=== PATIENT | female | born 1975 | race Caucasian/White ===

== ENCOUNTER 2019-07-18 17:57 | Inpatient (IN) | payer SELFPAY ==
[2019-07-18 18:14] VITALS: BMI 21.9
--- NOTE | 2019-07-18 18:14 | PDOC ---
Rapid Medical Evaluation Chief Complaint: RX Refill Time Seen by Provider: 07/18/19 18:10 Medical Evaluation: Allergies Allergy/AdvReac Type Severity Reaction Status Date / Time No Known Allergies Allergy Verified 07/18/19 18:09 07/18/19 18:11 I performed a brief in-person evaluation of this patient. 44-year-old female with history of epilepsy, recently moved from [place] and unable to get AEDs. Had seizure last night. Normally has 1 seizure per week. Seeking refill for Dilantin ER 200mg bid and Vimpat 200mg bid. Pertinent physical exam findings: Alert, no distress. No focal deficits. I have ordered the following: Dilantin Er 200mg Vimpat 200mg Labs including levels Patient to proceed to ED for further evaluation. Discharge Disposition - Diagnosis Seizure - Referrals - Patient Instructions - Post Discharge Activity
[2019-07-18] MEDS ORDERED: PHENYTOIN NA EXTENDED 100 MG CAPSULE (FP) PO ONE (18:15)
[2019-07-18] MEDS ORDERED: LACOSAMIDE 50 MG TABLET PO ONE ×2 (18:16→19:59)
[2019-07-18 19:15] LABS: EPI CELLS 3.9 /HPF (0-5/HPF); HYALINE CASTS 3 /lpf (0-8); PH,URINE 5.5 (5.0-8.0); URINE APPEARANCE CLOUDY; URINE BACTERIA 131.1 /hpf (NEGATIVE); URINE BILIRUBIN NEGATIVE (NEGATIVE); URINE COLOR DK YELLOW; URINE GLUCOSE (UA) NEGATIVE (NEGATIVE); URINE KETONE TRACE (NEGATIVE); URINE LEUK ESTERASE 2+ (NEGATIVE); URINE NITRITE NEGATIVE (NEGATIVE); URINE PROTEIN 1+ (NEGATIVE); URINE RBC 7 /hpf (0-4); URINE WBC 314 /hpf (0-5)
[2019-07-18 19:45] LABS: ALBUMIN 3.9 g/dl (3.4-5.0); BILIRUBIN,TOTAL 0.2 mg/dL (0.2-1); BLOOD UREA NITROGEN 14.1 mg/dL (7-18); CALCIUM 8.9 mg/dL (8.5-10.1); CREATININE 0.7 mg/dL (0.55-1.3); POTASSIUM 3.4 mmol/L (3.5-5.1); TOT PROT 7.5 g/dl (6.4-8.2)
--- NOTE | 2019-07-18 19:46 | PDOC ---
Attending Attestation - Resident Resident Name: Ken Tucker - ED Attending Attestation I have performed the following: I have examined & evaluated the patient, The case was reviewed & discussed with the resident, I agree w/resident's findings & plan - HPI HPI: 07/18/19 21:51 see resident hpi - Physicial Exam PE: 07/18/19 21:52 see resident exam - Medical Decision Making 07/18/19 22:39 44-year-old female with history of seizures unable to obtain outpatient follow- up now with increasing frequency of seizures Labs suggest urinary tract infection Plan for CT scan of the brain, admission to medical service for further evaluation
[2019-07-18] MEDS ORDERED: PHENYTOIN NA EXTENDED 100 MG CAPSULE (FP) ONE (19:59)
[2019-07-18] MEDS ORDERED: CEPHALEXIN MONOHYDRATE 500 MG CAPSULE (UD) PO ONE (20:07)
--- NOTE | 2019-07-18 20:14 | PDOC ---
History of Present Illness - General Chief Complaint: Seizure Stated Complaint: SEIZURE Time Seen by Provider: 07/18/19 18:10 History Source: Patient - History of Present Illness Initial Comments: 44F PMH Epilepsy presenting requesting refill on her medications; moved from [place] yesterday and out of her sz meds. Had witnessed seizure in ED in [place] and was given her home meds and dc'd. Ran out of insurance; unable to fill meds. Denies f/c, headache, lightheadedness, vision changes, numbness, tingling, weakness. Denies cp/sob, n/v. Past History - Past Medical History Allergies/Adverse Reactions: Allergies Allergy/AdvReac Type Severity Reaction Status Date / Time No Known Allergies Allergy Verified 07/18/19 18:09 Home Medications: Ambulatory Orders Folic Acid - 1 mg PO DAILY #30 tablet 07/19/19 Thiamine HCl [Vitamin B1 -] 100 mg PO DAILY #30 tablet 07/19/19 Phenytoin Na Extended [Dilantin -] 200 mg PO BID #60 capsule 07/22/19 levETIRAcetam [Keppra -] 750 mg PO BID #60 tablet 07/22/19 - Psycho Social/Smoking Cessation Hx Smoking History: Current every day smoker Number of Cigarettes Smoked Daily: 10 Information on smoking cessation initiated: No Hx Alcohol Use: No Drug/Substance Use Hx: No Review of Systems - Review of Systems Able to Perform ROS?: Yes Comments:: CONSTITUTIONAL: Denies F / C HEENT: Denies headache, lightheadedness RESP: Denies SOB, cough CARD: Denies chest pain, palpitations GI: Denies N / V / D, abdominal pain : Denies dysuria SKIN: Denies rashes NEURO: Denies numbness, tingling, weakness MSK: Denies back pain *Physical Exam - Vital Signs Last Vital Signs Temp Pulse Resp BP Pulse Ox 98.2 F 90 16 120/90 99 07/18/19 18:10 07/18/19 18:10 07/18/19 18:10 07/18/19 18:10 07/18/19 18:10 - Physical Exam GEN: Well appearing, NAD, comfortable. AAOx3. HEENT: NC/AT, CN II-XII intact, EOMI, PERRL. No facial asymmetry. Normal voice. Supple neck w/ FROM. CV: S1/S2, RRR, no m/r/g LUNG: CTAB, no wheezes, crackles, rales, rhonchi. GI: Soft, ndnt, +BS, no guarding, no rebound. No masses. MSK: No obvious deformities of all extremities. SKIN: Warm, dry, no rashes appreciated. PSYCH: Normal mood and affect. NEURO: Moving all extremities well; 5/5 UE LE strength. Symmetric sensation. FTN no ataxia. ED Treatment Course - LABORATORY CBC & Chemistry Diagram: 07/19/19 06:57 07/19/19 06:57 - ADDITIONAL ORDERS Additional order review: Laboratory Results 07/18/19 07/18/19 18:38 18:30 Sodium 140 Potassium 3.4 L Chloride 103 Carbon Dioxide 28 Anion Gap 9 BUN 14.1 Creatinine 0.7 Est GFR (CKD-EPI)AfAm 121.27 Est GFR (CKD-EPI)NonAf 104.64 Random Glucose 102 Calcium 8.9 Total Bilirubin 0.2 AST 18 ALT 26 Alkaline Phosphatase 127 H Total Protein 7.5 Albumin 3.9 Urine Color Dk yellow Urine Appearance Cloudy Urine pH 5.5 Ur Specific [place] 1.028 Urine Protein 1+ H Urine Glucose (UA) Negative Urine Ketones Trace H Urine Blood Negative Urine Nitrite Negative Urine Bilirubin Negative Urine Urobilinogen 1.0 Ur Leukocyte Esterase 2+ H Urine WBC (Auto) 314 Urine RBC (Auto) 7 Urine Casts (Auto) 3 U Epithel Cells (Auto) 3.9 Urine Bacteria (Auto) 131.1 - Medications Given in the ED: ED Medications Discontinued Medications Generic Name Dose Route Start Last Admin Trade Name Freq PRN Reason Stop Dose Admin Lacosamide 200 mg 07/18/19 18:16 07/18/19 20:04 Vimpat - PO 07/18/19 18:17 200 mg ONCE ONE Administration Phenytoin Sodium 200 mg 07/18/19 18:15 07/18/19 20:04 Dilantin - PO 07/18/19 18:16 200 mg ONCE ONE Administration Medical Decision Making - Medical Decision Making 07/18/19 20:07 44F pmh epilepsy, out of meds, no insurance. neurologically intact. Pt has been moving around EDs for AEDs; will have seizure if w/o AEDs x24h. Concern for further seizures or deterioration of clinical condition if pt unable to obtain supply of AEDs. - cbc, cmp - ekg - CT head - neuro c/s - meds 07/18/19 22:[address] head report reviewed admitted Discharge - Discharge Information Problems reviewed: Yes Clinical Impression/Diagnosis: Seizure Condition: Good Disposition: HOME - Follow up/Referral - Patient Discharge Instructions - Post Discharge Activity
[2019-07-18] MEDS ORDERED: CEPHALEXIN MONOHYDRATE 500 MG CAPSULE (UD) ONE (20:15)
[2019-07-18 21:13] LABS: BASO % 1.1 % (0-2.0); EOS % 2.4 % (0-4.5); HEMATOCRIT 46.3 % (32.4-45.2); HEMOGLOBIN 15.8 GM/dL (10.7-15.3); MCH 34.2 pg (25.7-33.7); MCHC 34.1 g/dl (32.0-36.0); MEAN CELL VOLUME 100.4 fl (80-96); MEAN PLT VOLUME 9.9 fl (7.5-11.1); MONO % 8.3 % (3.8-10.2); NEUT % 50.2 % (42.8-82.8); PLATELET COUNT 319 K/MM3 (134-434); RBC 4.62 M/mm3 (3.60-5.2); RDW 13.4 % (11.6-15.6); WHITE BLOOD COUNT 7.7 K/mm3 (4.0-10.0)
--- NOTE | 2019-07-18 22:30 | PN ---
Teaching Attending Note Name of Resident: Alok Moreira ATTENDING PHYSICIAN STATEMENT I saw and evaluated the patient. I reviewed the resident's note and discussed the case with the resident. I agree with the resident's findings and plan as documented. SUBJECTIVE: 44 Y/O F W epilepsy, recently moved from [place] and unable to get AEDs now in the ED to get refill on her medications as she had an episode of seizure last night, in the ED she recieved 1 dose of her home medication Had seizure last night. Normally has 1 seizure per week. Seeking refill for Dilantin ER 200mg bid and Vimpat 200mg bid. OBJECTIVE: middle age F in no distress no focal neurologic deficits CVS:S1S2 CTAB CBCD WBC 7.7 K/mm3 (4.0-10.0) 07/18/19 20:39 RBC 4.62 M/mm3 (3.60-5.2) 07/18/19 20:39 Hgb 15.8 GM/dL (10.7-15.3) H 07/18/19 20:39 Hct 46.3 % (32.4-45.2) H 07/18/19 20:39 MCV 100.4 fl (80-96) H 07/18/19 20:39 MCHC 34.1 g/dl (32.0-36.0) 07/18/19 20:39 RDW 13.4 % (11.6-15.6) 07/18/19 20:39 Plt Count 319 K/MM3 (134-434) 07/18/19 20:39 MPV 9.9 fl (7.5-11.1) 07/18/19 20:39 CMP Sodium 140 mmol/L (136-145) 07/18/19 18:38 Potassium 3.4 mmol/L (3.5-5.1) L 07/18/19 18:38 Chloride 103 mmol/L (98-107) 07/18/19 18:38 Carbon Dioxide 28 mmol/L (21-32) 07/18/19 18:38 Anion Gap 9 MMOL/L (8-16) 07/18/19 18:38 BUN 14.1 mg/dL (7-18) 07/18/19 18:38 Creatinine 0.7 mg/dL (0.55-1.3) 07/18/19 18:38 Calcium 8.9 mg/dL (8.5-10.1) 07/18/19 18:38 Total Bilirubin 0.2 mg/dL (0.2-1) 07/18/19 18:38 AST 18 U/L (15-37) 07/18/19 18:38 ALT 26 U/L (13-61) 07/18/19 18:38 Alkaline Phosphatase 127 U/L (45-117) H 07/18/19 18:38 Total Protein 7.5 g/dl (6.4-8.2) 07/18/19 18:38 Albumin 3.9 g/dl (3.4-5.0) 07/18/19 18:38 ASSESSMENT AND PLAN: 44 Y/O F W epilepsy, recently moved from [place] and unable to get AEDs now in the ED to get refill on her medications as she had an episode of seizure last night, in the ED she recieved 1 dose of her home medication, no need for further intervention at this time as patient has reema reason for her seizure episodes. Will have her F/u with neurology as O/P if she is going to stay in [place] and would need to Establish new neurologist.
--- NOTE | 2019-07-18 23:49 | HP ---
CHIEF COMPLAINT: seizure PCP: none. Neurologist in [place] Dr. Sykes HISTORY OF PRESENT ILLNESS: 44 y.o. F PMH epilepsy since age 19, prior hx of unknown psychiatric disorder, polysubstance abuse, hypokalemia, migraines presenting after reported seizure yesterday. The patient was brought in by her sister for "post- seizure bloodwork ". She was in the ED at [facility] yesterday in [place] where she lives; as per pt she was not admitted but says she had a seizure in the ED. She was given her antiepileptic medications and sent home. I spoke with ED resident at [facility], the patient was in their ED 07/15/2019 and again 07/17/2019 ; no seizure was witnessed although she has reported 6 seizures in the last month. She is now in [place] to visit her sister and came to [facility] ED for post seizure labs. Patients sister roslyn contacted, states this is not patient's baseline mental status. In ED was given her medications (takes Vimat 200mg BID, Dilantin 200mg BID). She says she has not taken her medications x 2weeks due to losing her insurance. Dr. Green contacted by ED resident, suggests switch to Keppra as it is more affordable option for seizure ppx. ROS: + confusion (although oriented x 3) denies dizziness/ headache/ SOB/ CP/ N/V/D/myalgias/ uriary incontinence/ parasthesias. Recent Travel: from [place] yesterday PAST MEDICAL HISTORY: seizure d/o, psychiatric hospitalization in 2007 for unknown pychiatric d/o PAST SURGICAL HISTORY: denies Social History: Smoking: daily cigarette smoker Alcohol:denies Drugs: denies Allergies No Known Allergies Allergy (Verified 07/18/19 18:09) HOME MEDICATIONS: Home Medications Medication Instructions Recorded Lacosamide [Vimpat] 200 mg PO DAILY 07/18/19 Phenytoin Na Extended [Dilantin -] 100 mg PO BID 07/18/19 PHYSICAL EXAMINATION Vital Signs - 24 hr 07/18/19 18:10 Temperature 98.2 F Pulse Rate 90 Respiratory 16 Rate Blood Pressure 120/90 O2 Sat by Pulse 99 Oximetry (%) GENERAL: Awake, alert, and fully oriented, in no acute distress. HEENT: NCAT. EOMI. PERRLA. LUNGS: Breath sounds equal, clear to auscultation bilaterally. No wheezes, and no crackles. No accessory muscle use. HEART: Regular rate and rhythm, normal S1 and S2 without murmur, rub or gallop. ABDOMEN: Soft, nontender, not distended, normoactive bowel sounds, no guarding. EXTREMITIES: 2+ pulses, warm, well-perfused. No peripheral edema. NEUROLOGICAL: Cranial nerves II-XII intact. Motor strength 5/5 throughout. Reflexes 2+ UE & LE. Sensory intact throughout. SKIN: no rashes or lesions noted Laboratory Results - last 24 hr 07/18/19 07/18/19 07/18/19 18:30 18:38 20:39 WBC RBC Hgb Hct MCV MCH MCHC RDW Plt Count MPV Absolute Neuts (auto) Neutrophils % Lymphocytes % Monocytes % Eosinophils % Basophils % Nucleated RBC % Sodium 140 Potassium 3.4 L Chloride 103 Carbon Dioxide 28 Anion Gap 9 BUN 14.1 Creatinine 0.7 Est GFR (CKD-EPI)AfAm 121.27 Est GFR (CKD-EPI)NonAf 104.64 Random Glucose 102 Calcium 8.9 Total Bilirubin 0.2 AST 18 ALT 26 Alkaline Phosphatase 127 H Total Protein 7.5 Albumin 3.9 Serum , Qual Urine Color Dk yellow Urine Appearance Cloudy Urine pH 5.5 Ur Specific [place] 1.028 Urine Protein 1+ H Urine Glucose (UA) Negative Urine Ketones Trace H Urine Blood Negative Urine Nitrite Negative Urine Bilirubin Negative Urine Urobilinogen 1.0 Ur Leukocyte Esterase 2+ H Urine WBC (Auto) 314 Urine RBC (Auto) 7 Urine Casts (Auto) 3 U Epithel Cells (Auto) 3.9 Urine Bacteria (Auto) 131.1 Phenytoin 3.2 07/18/19 07/18/19 20:39 20:39 WBC 7.7 RBC 4.62 Hgb 15.8 H Hct 46.3 H MCV 100.4 H MCH 34.2 H MCHC 34.1 RDW 13.4 Plt Count 319 MPV 9.9 Absolute Neuts (auto) 3.9 Neutrophils % 50.2 Lymphocytes % 38.0 Monocytes % 8.3 Eosinophils % 2.4 Basophils % 1.1 Nucleated RBC % 0 Sodium Potassium Chloride Carbon Dioxide Anion Gap BUN Creatinine Est GFR (CKD-EPI)AfAm Est GFR (CKD-EPI)NonAf Random Glucose Calcium Total Bilirubin AST ALT Alkaline Phosphatase Total Protein Albumin Serum , Qual Negative Urine Color Urine Appearance Urine pH Ur Specific [place] Urine Protein Urine Glucose (UA) Urine Ketones Urine Blood Urine Nitrite Urine Bilirubin Urine Urobilinogen Ur Leukocyte Esterase Urine WBC (Auto) Urine RBC (Auto) Urine Casts (Auto) U Epithel Cells (Auto) Urine Bacteria (Auto) Phenytoin Imaging: CT head: The ventricles are slitlike. However, the vega-white matter junction appears unremarkable without suggestion of brain edema. Correlate clinically. Moderate atrophy/ volume loss involving the cerebellum, of uncertain etiology. It may be related to chronic seizure medications and take. Correlate clinically. Otherwise, no CT evidence of acute intracranial pathology is identified. ASSESSMENT/PLAN: 44 y.o. F PMH epilepsy since age 19, prior hx of unknown psychiatric disorder, polysubstance abuse, hypokalemia, migraines presenting s/p witnessed seizure. #Seizure disorder -continue home AE medications: vimpat 200mg BID, dilantin 200mg BID -Dr. Green contacted in ED, verbal recs maybe switching to keppra as it is a more affordable option for the patient -F/u AM lacosamide level -CT head findings as above -seizure, fall precautions -f/u u-tox, ammonia, EtOH level #FEN -no standing fluids -replete lytes prn, hx of hypokalemia as per [facility] -regular diet #Dispo med surg social work consulted Visit type - Emergency Visit Emergency Visit: Yes ED Registration Date: 07/18/19 Care time: The patient presented to the Emergency Department on the above date and was hospitalized for further evaluation of their emergent condition. - New Patient This patient is new to me today: Yes Date on this admission: 07/19/19 - Critical Care Critical Care patient: No ATTENDING PHYSICIAN STATEMENT I saw and evaluated the patient. I reviewed the resident's note and discussed the case with the resident. I agree with the resident's findings and plan as documented. SUBJECTIVE: OBJECTIVE: ASSESSMENT AND PLAN:
[2019-07-19 03:34] LABS: COCAINE, UR NEGATIVE ng/ml (CUTOFF=300); METHADONE, UR NEGATIVE ng/ml (CUTOFF=300); OPIATES, URI NEGATIVE ng/ml (CUTOFF=300); PHENCYCLIDINE,URINE NEGATIVE ng/ml (CUTOFF=25); URINE AMPHETAMINES NEGATIVE ng/ml (CUTOFF=500); URINE BARBITURATES NEGATIVE ng/ml (CUTOFF=200); URINE BENZODIAZEPINES NEGATIVE ng/ml (CUTOFF=200)
[2019-07-19 07:26] LABS: BASO % 1.4 % (0-2.0); EOS % 2.6 % (0-4.5); HEMATOCRIT 44.3 % (32.4-45.2); LYMPH % 33.5 % (8-40); MCH 33.9 pg (25.7-33.7); MCHC 33.8 g/dl (32.0-36.0); MEAN CELL VOLUME 100.1 fl (80-96); MEAN PLT VOLUME 8.4 fl (7.5-11.1); MONO % 10.8 % (3.8-10.2); NEUT % 51.7 % (42.8-82.8); PLATELET COUNT 266 K/MM3 (134-434); RBC 4.42 M/mm3 (3.60-5.2); RDW 13.2 % (11.6-15.6); WHITE BLOOD COUNT 6.9 K/mm3 (4.0-10.0)
--- NOTE | 2019-07-19 07:33 | PN ---
Physical Exam: SUBJECTIVE: Patient seen and examined OBJECTIVE: Last Vital Signs Temp Pulse Resp BP Pulse Ox 98.2 F 75 19 105/79 98 07/18/19 18:10 07/19/19 06:24 07/19/19 06:24 07/19/19 06:24 07/19/19 06:24 GENERAL: The patient is awake, alert, and fully oriented, in no acute distress. Laboratory Results - last 24 hr Active Medications Current Medications Lacosamide (Vimpat -) 200 mg PO DAILY NUZHAT Phenytoin Sodium (Dilantin -) 100 mg PO BID [facility] Home Medications Medication Instructions Recorded Lacosamide [Vimpat] 200 mg PO DAILY 07/18/19 Phenytoin Na Extended [Dilantin -] 100 mg PO BID 07/18/19 ASSESSMENT/PLAN: CT head: The ventricles are slitlike. However, the vega-white matter junction appears unremarkable without suggestion of brain edema. Correlate clinically. Moderate atrophy/ volume loss involving the cerebellum, of uncertain etiology. It may be related to chronic seizure medications and take. Correlate clinically. Otherwise, no CT evidence of acute intracranial pathology is identified. ASSESSMENT/PLAN: 44 y.o. F PMH epilepsy since age 19, prior hx of unknown psychiatric disorder, polysubstance abuse, hypokalemia, migraines presenting s/p witnessed seizure. #Seizure disorder -continue home AE medications: vimpat 200mg BID, dilantin 200mg BID -Dr. Green contacted in ED, verbal recs maybe switching to keppra as it is a more affordable option for the patient -F/u AM lacosamide level -CT head findings as above -seizure, fall precautions -f/u u-tox, ammonia, EtOH level #FEN -no standing fluids -replete lytes prn, hx of hypokalemia as per [facility] -regular diet #Dispo med surg social work consulted ATTENDING PHYSICIAN STATEMENT I saw and evaluated the patient. I reviewed the resident's note and discussed the case with the resident. I agree with the resident's findings and plan as documented. SUBJECTIVE: OBJECTIVE: ASSESSMENT AND PLAN:
[2019-07-19 07:45] LABS: ALBUMIN 3.7 g/dl (3.4-5.0); BILIRUBIN,TOTAL 0.4 mg/dL (0.2-1); BLOOD UREA NITROGEN 10.4 mg/dL (7-18); CALCIUM 8.7 mg/dL (8.5-10.1); CREATININE 0.6 mg/dL (0.55-1.3); MAGNESIUM 2.1 mg/dL (1.8-2.4); POTASSIUM 3.1 mmol/L (3.5-5.1); TOT PROT 7.3 g/dl (6.4-8.2)
[2019-07-19] MEDS ORDERED: POTASSIUM CHLORIDE TABS 20 MEQ TABLET.ER (FP) PO ONE (08:31)
--- NOTE | 2019-07-19 09:17 | EKG ---
Test Reason : Blood Pressure : / mmHG Vent. Rate : 082 BPM Atrial Rate : 082 BPM P-R Int : 182 ms QRS Dur : 090 ms QT Int : 384 ms P-R-T Axes : 060 074 067 degrees QTc Int : 448 ms NORMAL SINUS RHYTHM NORMAL ECG NO PREVIOUS ECGS AVAILABLE Confirmed by Maurilio Fisher MD ([id number]) on 07/19/2019 9:17:10 AM Referred By: Confirmed By:Maurilio Fisher MD
[2019-07-19] MEDS ORDERED: LACOSAMIDE 50 MG TABLET PO SCH (10:00)
[2019-07-19] MEDS ORDERED: PHENYTOIN NA EXTENDED 100 MG CAPSULE (FP) PO SCH (10:00)
[2019-07-19 10:35] VITALS: BP 118/80; PULSE 74; TEMP 98.1
[2019-07-19] MEDS ORDERED: LACOSAMIDE 50 MG TABLET PO ONE (10:46)
[2019-07-19] MEDS ORDERED: FOLIC ACID 1 MG TABLET (FP) PO ONE (11:24)
[2019-07-19] MEDS ORDERED: THIAMINE HCL 100 MG TABLET (FP) PO ONE (11:24)
[2019-07-19] MEDS ORDERED: THIAMINE HCL 100 MG TABLET (FP) PO SCH (12:45)
[2019-07-19] MEDS ORDERED: FOLIC ACID 1 MG TABLET (FP) PO SCH (12:45)
--- NOTE | 2019-07-19 14:12 | PN ---
Teaching Attending Note Name of Resident: Nithin Sauceda ATTENDING PHYSICIAN STATEMENT I saw and evaluated the patient. I reviewed the resident's note and discussed the case with the resident. I agree with the resident's findings and plan as documented. Seen and examined; please see resident note for further historical information. I personally verified all murillo historical information and exam findings. Personally interpreted all imaging and diagnostics and reviewed appropriate consults. I reviewed all labs and vital signs as per resident note and EMR as documented. I agree with the above assessment and plan unless supplemented by myself in the following. No seizure activity noted, obtaining release of records to get her chart from [place] to complete her chart but this should not delay discharge. Spoke with neurology who actually recommended discharge from the emergency room last night. 10 item review of systems completed and is negative aside from as discussed in the subjective data in my own/the resident documentation. VS, labs, imaging reviewed NAD, AAO, resting comfortably in bed. RRR s1/2 no mgr Normal muscle tone, moves all 5 extremities with normal apparent strength Neck is supple, trachea midline, no lópez LN Lungs CTAB with sym expansion NT ND +BS no lópez organomegaly CN2-12 wnl; no FND NC AT EOMI PERRLA Normal mood, appropriate behavior, euthymic affect No skin breakdown or rashes noted Assessment and plan: Patient has a history of seizure disorder that was treated as delineated in the history and physical with her being discharged on phenytoin and Vimpat. She was recently hospitalized in [place] for several days and discharged on the without having any seizure activity noted there. Her phenytoin level is 3.2. Neurology spoke to the emergency room last night and recommended transitioning her to Keppra and Dilantin due to the fact that the Vimpat may be a controlled substance which would potentially contribute to an unsafe discharge plan given the patient's history of polysubstance abuse. The etiology of her epilepsy is potentially secondary to an organic disorder versus secondary to her polysubstance abuse. Discussed at length with neurology and they recommended to place her on the current dose of Dilantin, 500 twice daily of Keppra without loading, and to discharge with follow-up with her primary neurologist and primary care. They may follow-up with the neurology team here and primary care here if they do not go back to [place] within a reasonable time. No seizure activity or focal neurologic issues were noted throughout her time in the hospital. Imaging and work-up were negative.
--- NOTE | 2019-07-19 19:02 | DS ---
Physical Exam: SUBJECTIVE: Patient seen and examined. Pt is asymptomatic and afebrile currently. No overnight event she could remember. Reports mild seizure like episode. Nurse denies any such events. Denies f/c/n/v/d/sob/cp OBJECTIVE: Vital Signs Period Temp Pulse Resp BP Sys/Rosales Pulse Ox Last 24 Hr 98.1 F-98.1 F 74-82 18-20 105-118/79-80 98-99 PHYSICAL EXAM GENERAL: The patient is awake, alert, and fully oriented, in no acute distress. Appears tired EYES: PERRL, extraocular movements intact, ENT: oropharynx clear without exudates, moist mucous membranes. NECK: Trachea midline, full range of motion, supple. LUNGS: Breath sounds equal, clear to auscultation bilaterally, no wheezes, no crackles, no accessory muscle use. HEART: Regular rate and rhythm, S1, S2 without murmur, rub or gallop. ABDOMEN: Soft, nontender, nondistended, normoactive bowel sounds, no guarding, no rebound, no hepatosplenomegaly, EXTREMITIES: 2+ pulses, warm NEUROLOGICAL: Cranial nerves II through XII grossly intact. Decreased speech LABS Laboratory Results - last 24 hr Home Medications Medication Instructions Recorded Folic Acid - 1 mg PO DAILY #30 tablet 07/19/19 Phenytoin Na Extended [Dilantin -] 100 mg PO BID #60 capsule 07/19/19 Thiamine HCl [Vitamin B1 -] 100 mg PO DAILY #30 tablet 07/19/19 levETIRAcetam [Keppra -] 500 mg PO BID #60 tablet 07/19/19 CBC,CMP WBC 6.9 K/mm3 (4.0-10.0) 07/19/19 06:57 RBC 4.42 M/mm3 (3.60-5.2) 07/19/19 06:57 Hgb 15.0 GM/dL (10.7-15.3) 07/19/19 06:57 Hct 44.3 % (32.4-45.2) 07/19/19 06:57 MCV 100.1 fl (80-96) H 07/19/19 06:57 MCH 33.9 pg (25.7-33.7) H 07/19/19 06:57 MCHC 33.8 g/dl (32.0-36.0) 07/19/19 06:57 RDW 13.2 % (11.6-15.6) 07/19/19 06:57 Plt Count 266 K/MM3 (134-434) 07/19/19 06:57 MPV 8.4 fl (7.5-11.1) D 07/19/19 06:57 Absolute Neuts (auto) 3.6 K/mm3 (1.5-8.0) 07/19/19 06:57 Neutrophils % 51.7 % (42.8-82.8) 07/19/19 06:57 Lymphocytes % 33.5 % (8-40) 07/19/19 06:57 Monocytes % 10.8 % (3.8-10.2) H 07/19/19 06:57 Eosinophils % 2.6 % (0-4.5) 07/19/19 06:57 Basophils % 1.4 % (0-2.0) 07/19/19 06:57 Nucleated RBC % 0 % (0-0) 07/19/19 06:57 Sodium 140 mmol/L (136-145) 07/19/19 06:57 Potassium 3.1 mmol/L (3.5-5.1) L 07/19/19 06:57 Chloride 105 mmol/L (98-107) 07/19/19 06:57 Carbon Dioxide 29 mmol/L (21-32) 07/19/19 06:57 Anion Gap 6 MMOL/L (8-16) L 07/19/19 06:57 BUN 10.4 mg/dL (7-18) 07/19/19 06:57 Creatinine 0.6 mg/dL (0.55-1.3) 07/19/19 06:57 Est GFR (CKD-EPI)AfAm 127.58 07/19/19 06:57 Est GFR (CKD-EPI)NonAf 110.08 07/19/19 06:57 Random Glucose 96 mg/dL (74-106) 07/19/19 06:57 Calcium 8.7 mg/dL (8.5-10.1) 07/19/19 06:57 Magnesium 2.1 mg/dL (1.8-2.4) 07/19/19 06:57 Total Bilirubin 0.4 mg/dL (0.2-1) 07/19/19 06:57 AST 16 U/L (15-37) 07/19/19 06:57 ALT 24 U/L (13-61) 07/19/19 06:57 Alkaline Phosphatase 116 U/L (45-117) 07/19/19 06:57 Ammonia 12.50 umol/L (11-32) 07/19/19 01:20 Total Protein 7.3 g/dl (6.4-8.2) 07/19/19 06:57 Albumin 3.7 g/dl (3.4-5.0) 07/19/19 06:57 Serum , Qual Negative 07/18/19 20:39 HOSPITAL COURSE: Date of Admission:07/18/19 44 y/o F PMH epilepsy since age 19, prior hx of unknown psychiatric disorder, polysubstance abuse, migraines presented to the ED for post seizure work up. Pt was seen in [facility] in [facility] a day ago for an unwitnessed seizure episode. She was discharged home on Dilantin and Vimpat and advised to f /u for repeat labs. However, she was on her way to [place] to visit her sibling and thus decided to come to [facility] for labs. In our ED, she was not reported to have any further witnessed seizures. CT head was neg for acute changes. Dr. Green, neurology was contacted and recommended switching Vimpat to Keppra 500 BID, since pt reports non-compliance with seizure meds due to difficulty accessing it from insurance approval issues. Pt was monitored overnight and discharged on Keppra 500 BID and Phenytoin 100 mg BID, along with thiamine and folic acid. EKG: NSR CT head: The ventricles are slitlike. However, the vega-white matter junction appears unremarkable without suggestion of brain edema. Correlate clinically. Moderate atrophy/ volume loss involving the cerebellum, of uncertain etiology. It may be related to chronic seizure medications and take. Correlate clinically. Otherwise, no CT evidence of acute intracranial pathology is identified. Date of Discharge: 07/19/19 Minutes to complete discharge: 40 Discharge Summary Problems reviewed: Yes Reason For Visit: SEIZURE Condition: Good - Instructions Diet, Activity, Other Instructions: You were admitted to the hospital for seizures While in the hospital, we evaluated you with lab work, blood work, imaging including CAT scan of your head. We monitored you overnight and treated you with medications. We made some changed to your medications, please take the following medications as instructed: Please STOP taking Vimpat Please START taking Keppra 500 mg twice a day daily Please continue taking Dilantin 100 mg twice daily Please take all your medications as prescribed Please follow up with your neurologist or the one we have provided you with, Dr Green, within 1 week Please follow up with your primary care physician or the one we have provided you within 1 week Return to the emergency room, if you experience worsening of your symptoms, chest pain, seizures, headaches or any worsening of your condition. Referrals: [facility] [place] [facility] [place] [Provider Group] - 1 Week Bert Green MD [Staff Physician] - 1 Week Cornell Ayala MD [Staff Physician] - 1 Week Disposition: HOME - Home Medications Comprehensive Discharge Medication List: Ambulatory Orders Folic Acid - 1 mg PO DAILY #30 tablet 07/19/19 Phenytoin Na Extended [Dilantin -] 100 mg PO BID #60 capsule 07/19/19 Thiamine HCl [Vitamin B1 -] 100 mg PO DAILY #30 tablet 07/19/19 levETIRAcetam [Keppra -] 500 mg PO BID #60 tablet 07/19/19 This patient is new to me today: Yes Date on this admission: 07/19/19 Emergency Visit: Yes ED Registration Date: 07/18/19 Care time: The patient presented to the Emergency Department on the above date and was hospitalized for further evaluation of their emergent condition. Critical Care patient: No - Discharge Referral Referred to [facility] No ATTENDING PHYSICIAN STATEMENT I saw and evaluated the patient. I reviewed the resident's note and discussed the case with the resident. I agree with the resident's findings and plan as documented. SUBJECTIVE: OBJECTIVE: ASSESSMENT AND PLAN:
[2019-07-20] MEDS ORDERED: FOLIC ACID 1 MG TABLET (FP) PO SCH (10:00)
[2019-07-20] MEDS ORDERED: THIAMINE HCL 100 MG TABLET (FP) PO SCH (10:00)
== END 2019-07-19 16:07 | disposition home or self-care (01) | DRG 53 ==
LOC: JER 17:57 → JERBED 22:13
PROVIDERS: ADMIT Internal Medicine; ATTEND Internal Medicine
DX: G40.909 Epilepsy, unspecified, not intractable, without status epilepticus (principal); F17.210 Nicotine dependence, cigarettes, uncomplicated; G43.909 Migraine, unspecified, not intractable, without status migrainosus; F99 Mental disorder, not otherwise specified; F19.10 Other psychoactive substance abuse, uncomplicated; Z91.14 Patient's other noncompliance with medication regimen
CPT/HCPCS: 36415; 70450-TC; 80053; 80185; 80307; 81003; 82140; 83735; 84703; 85025; 93005; 93010; 99285-25; G0480

== ENCOUNTER 2019-07-21 15:31 | Inpatient (IN) | payer SELFPAY ==
--- NOTE | 2019-07-21 15:42 | PDOC ---
Rapid Medical Evaluation Time Seen by Provider: 07/21/19 15:41 Medical Evaluation: Allergies Allergy/AdvReac Type Severity Reaction Status Date / Time No Known Allergies Allergy Verified 07/18/19 18:09 07/21/19 15:41 CC: seizure like activity while sleeping x6 today PE: No focal findings Orders: labs with Keppra and dilantin levels Patient will proceed to ED for continued evaluation. Discharge Disposition - Diagnosis Witnessed seizure-like activity - Referrals - Patient Instructions - Post Discharge Activity
--- NOTE | 2019-07-21 16:39 | PDOC ---
History of Present Illness - General Chief Complaint: Seizure Stated Complaint: SEIZURES WHILE SLEEPING Time Seen by Provider: 07/21/19 15:41 History Source: Patient, Family - History of Present Illness Initial Comments: 44F PMH Epilepsy and Polysubstance abuse presenting with witnessed seizure activity during sleep. witnessed by family at bedside last PM who describes an apnic period followed by generalized shaking of the body. Activity lasted 20-30 secs before patient stopped and came to w/ a brief period of confusion. Family states this happened throughout the night x5 episodes w/ last being around noon today. Of note, I saw and admitted this patient recently and according to her dc papers, she was switched from vimpat to keppra. Pt and family states she has been taking dilantin and vimpat as directed. Unable to f/u w/ neurology yet w/ appointment scheduled in July. Denies f/c, cp/sob, n/v, numbness, tingling, weakness. Back to baseline per pt and family. Denies etoh, substance abuse. NKDA Past History - Past Medical History Allergies/Adverse Reactions: Allergies Allergy/AdvReac Type Severity Reaction Status Date / Time No Known Allergies Allergy Verified 07/18/19 18:09 Home Medications: Ambulatory Orders Folic Acid - 1 mg PO DAILY #30 tablet 07/19/19 Thiamine HCl [Vitamin B1 -] 100 mg PO DAILY #30 tablet 07/19/19 Phenytoin Na Extended [Dilantin -] 200 mg PO BID #60 capsule 07/22/19 levETIRAcetam [Keppra -] 750 mg PO BID #60 tablet 07/22/19 COPD: No Seizures: Yes - Psycho Social/Smoking Cessation Hx Smoking History: Current every day smoker Have you smoked in the past 12 months: Yes Number of Cigarettes Smoked Daily: 10 Information on smoking cessation initiated: Yes 'Breaking Loose' booklet given: 07/19/19 Hx Alcohol Use: No Drug/Substance Use Hx: No Substance Use Type: None Review of Systems - Review of Systems Able to Perform ROS?: Yes Comments:: CONSTITUTIONAL: Denies F / C HEENT: Denies headache RESP: Denies SOB, cough CARD: Denies chest pain GI: Denies N / V / D, abdominal pain, bloody stool, inability to tolerate PO : Denies dysuria SKIN: Denies rashes NEURO: Denies numbness, tingling, weakness. endorses seizure activity MSK: Denies back pain *Physical Exam - Vital Signs Last Vital Signs Temp Pulse Resp BP Pulse Ox 98.5 F 85 18 111/83 100 07/21/19 15:41 07/21/19 15:41 07/21/19 15:41 07/21/19 15:41 07/21/19 15:41 - Physical Exam GEN: NAD, comfortable. AAOx3. HEENT: NC/AT, CN II-XII intact, EOMI, PERRL. No facial asymmetry. Moist mucous membranes, poor dentition. Normal voice. Supple neck w/ FROM. CV: S1/S2, RRR, no m/r/g LUNG: CTAB, no wheezes, crackles, rales, rhonchi. GI: Soft, ndnt, +BS, no guarding, no rebound. No masses. Neg CVAT b/l. MSK: 2+ distal pulses. No LE edema. No obvious deformities of all extremities. SKIN: Warm, dry, no rashes appreciated. PSYCH: odd affect NEURO: Moving all extremities well. FROM UE and LE b/l. 5/5 UE strength b/l. 5/ 5 LE strength b/l. Sensation symmetric and intact throughout. ED Treatment Course - LABORATORY CBC & Chemistry Diagram: 07/22/19 07:35 07/22/19 07:35 Medical Decision Making - Medical Decision Making 07/21/19 16:37 44F PMH Epilepsy and Polysubstance abuse presenting with witnessed seizure activity preceded by apnic episodes. multiple witnessed seizures over night. Neurologically intact; unremarkable exam. Pt would benefit from sleep study given association of witnessed apnea prior to seizure activity. ED team feels CT Head is unwarranted at this time given no focal neurologic findings and that pt is alert and fully oriented. - CBC, CMP, keppra and dilantin levels - keppra load - admit 07/21/19 17:48 d/w Dr. Green - c/s, 1000mg keppra loading dose. 750mg BID keppra. 07/21/19 18:05 labs reviewed 07/21/19 18:25 EKG 1806 HR 75 SC 172 QRS 92 QTc 433; NSR 1L NS admit 07/21/19 18:39 Endorsed to MAR ADMITTED Discharge - Discharge Information Problems reviewed: Yes Clinical Impression/Diagnosis: Witnessed seizure-like activity Condition: Good - Admission Yes - Follow up/Referral - Patient Discharge Instructions - Post Discharge Activity
[2019-07-21 17:33] LABS: BASO % 1.1 % (0-2.0); EOS % 1.6 % (0-4.5); HEMATOCRIT 46.3 % (32.4-45.2); HEMOGLOBIN 15.6 GM/dL (10.7-15.3); LYMPH % 32.8 % (8-40); MCH 33.9 pg (25.7-33.7); MCHC 33.7 g/dl (32.0-36.0); MEAN CELL VOLUME 100.6 fl (80-96); MEAN PLT VOLUME 8.8 fl (7.5-11.1); MONO % 6.6 % (3.8-10.2); NEUT % 57.9 % (42.8-82.8); PLATELET COUNT 266 K/MM3 (134-434); RDW 13.3 % (11.6-15.6); WHITE BLOOD COUNT 7.9 K/mm3 (4.0-10.0)
[2019-07-21] MEDS: levETIRAcetam 500 MG/5 ML INJECTION VIAL IVPB ONE ×2 (17:33→18:06)
[2019-07-21] MEDS ORDERED: levETIRAcetam 500 MG/5 ML INJECTION VIAL IVPB ONE (17:50)
[2019-07-21 17:57] LABS: ALK PHOS 122 U/L (45-117); ANION GAP 4 MMOL/L (8-16); BILIRUBIN,TOTAL 0.2 mg/dL (0.2-1); BLOOD UREA NITROGEN 12.2 mg/dL (7-18); CALCIUM 9.3 mg/dL (8.5-10.1); CHLORIDE 106 mmol/L (98-107); CO2 31 mmol/L (21-32); CREATININE 0.7 mg/dL (0.55-1.3); GLUCOSE,RANDOM 73 mg/dL (74-106); POTASSIUM 3.5 mmol/L (3.5-5.1); SGOT/AST 15 U/L (15-37); SGPT/ALT 25 U/L (13-61); SODIUM 140 mmol/L (136-145); TOT PROT 7.7 g/dl (6.4-8.2)
[2019-07-21] MEDS ORDERED: SODIUM CHLORIDE 0.9% 500 ML INFUS.BAG IV ONE (18:28)
--- NOTE | 2019-07-21 20:51 | HP ---
CHIEF COMPLAINT: seizures PCP: HISTORY OF PRESENT ILLNESS: 44 y.o. F PMH epilepsy since age 19, prior hx of unknown psychiatric disorder, polysubstance abuse (opioids, many years ago not current), hypokalemia, migraines presenting for recurrent seizures. The patient is AOx3 however has lapses in short term memory. Sister at bedside providing history. Says the patient began seizing around 5pm yesterday and had 6 subsequent seizures, lasting 1-3 minutes each; patient was foaming at the mouth, lost consciousness. Did not hit head or lose continence but endorses tongue biting. She has been compliant with new medication since recent discharge on 07/19/2019. Sisters phone # [email or web address]) [phone] ER course was notable for: (1) keppra 1g IV (2) (3) Recent Travel: from [place] PAST MEDICAL HISTORY: seizure d/o, psychiatric hospitalization in 2007 for unknown pychiatric d/o PAST SURGICAL HISTORY: denies Social History: Smoking: daily cigarette smoker Alcohol:denies Drugs: denies Allergies No Known Allergies Allergy (Verified 07/18/19 18:09) HOME MEDICATIONS: Home Medications Medication Instructions Recorded Folic Acid - 1 mg PO DAILY #30 tablet 07/19/19 Phenytoin Na Extended [Dilantin -] 100 mg PO BID #60 capsule 07/19/19 Thiamine HCl [Vitamin B1 -] 100 mg PO DAILY #30 tablet 07/19/19 levETIRAcetam [Keppra -] 500 mg PO BID #60 tablet 07/19/19 REVIEW OF SYSTEMS CONSTITUTIONAL: Absent: fever, chills, diaphoresis, generalized weakness, malaise, loss of appetite, weight change HEENT: Absent: rhinorrhea, nasal congestion, throat pain, throat swelling, difficulty swallowing, mouth swelling, ear pain, eye pain, visual changes CARDIOVASCULAR: Absent: chest pain, syncope, palpitations, irregular heart rate, lightheadedness , peripheral edema RESPIRATORY: Absent: cough, shortness of breath, dyspnea with exertion, orthopnea, wheezing, stridor, hemoptysis GASTROINTESTINAL: Absent: abdominal pain, abdominal distension, nausea, vomiting, diarrhea, constipation, melena, hematochezia GENITOURINARY: Absent: dysuria, frequency, urgency, hesitancy, hematuria, flank pain, genital pain MUSCULOSKELETAL: Absent: myalgia, arthralgia, joint swelling, back pain, neck pain SKIN: Absent: rash, itching, pallor HEMATOLOGIC/IMMUNOLOGIC: Absent: easy bleeding, easy bruising, lymphadenopathy, frequent infections ENDOCRINE: Absent: unexplained weight gain, unexplained weight loss, heat intolerance, cold intolerance NEUROLOGIC: confusion, seizure Absent: headache, focal weakness or paresthesias, dizziness, unsteady gait, mental status changes, bladder or bowel incontinence PSYCHIATRIC: Absent: anxiety, depression, suicidal or homicidal ideation, hallucinations. PHYSICAL EXAMINATION Vital Signs - 24 hr 07/21/19 15:41 Temperature 98.5 F Pulse Rate 85 Respiratory 18 Rate Blood Pressure 111/83 O2 Sat by Pulse 100 Oximetry (%) GENERAL: Awake, alert, and fully oriented, in no acute distress. HEENT: No visual changes. NCAT. No sores/ wounds noted in oral cavity or on tongue. MMM. Conjunctiva clear. LUNGS: Breath sounds equal, clear to auscultation bilaterally. No wheezes, and no crackles. No accessory muscle use. HEART: Regular rate and rhythm, normal S1 and S2 without murmur, rub or gallop. ABDOMEN: Soft, nontender, not distended, normoactive bowel sounds EXTREMITIES: 2+ pulses, warm, well-perfused. No peripheral edema. NEUROLOGICAL: Cranial nerves II-XII intact. Normal speech. PSYCHIATRIC: Good mood and affect. SKIN: No rashes or lesions noted Laboratory Results - last 24 hr 07/21/19 07/21/19 17:00 17:00 WBC 7.9 RBC 4.60 Hgb 15.6 H Hct 46.3 H MCV 100.6 H MCH 33.9 H MCHC 33.7 RDW 13.3 Plt Count 266 MPV 8.8 Absolute Neuts (auto) 4.6 Neutrophils % 57.9 Lymphocytes % 32.8 Monocytes % 6.6 Eosinophils % 1.6 Basophils % 1.1 Nucleated RBC % 0 Sodium 140 Potassium 3.5 Chloride 106 Carbon Dioxide 31 Anion Gap 4 L BUN 12.2 Creatinine 0.7 Est GFR (CKD-EPI)AfAm 121.27 Est GFR (CKD-EPI)NonAf 104.64 Random Glucose 73 L Calcium 9.3 Total Bilirubin 0.2 AST 15 ALT 25 Alkaline Phosphatase 122 H Total Protein 7.7 Albumin 4.0 Imaging: CT head: The ventricles are slitlike. However, the vega-white matter junction appears unremarkable without suggestion of brain edema. Correlate clinically. Moderate atrophy/ volume loss involving the cerebellum, of uncertain etiology. It may be related to chronic seizure medications and take. Correlate clinically. Otherwise, no CT evidence of acute intracranial pathology is identified. ASSESSMENT/PLAN: 44 y.o. F PMH epilepsy since age 19, prior hx of unknown psychiatric disorder, polysubstance abuse (opioids, many years ago not current), hypokalemia, migraines admitted for seizures. #Seizures -continue medications keppra increased to 750mg BID, dilantin 100mg BID -f.u further neuro recs- Dr. Green consulted -fall & seizure precautions -u-tox, alcohol level -f/u dilantin & keppra levela -CT head negative for acute pathology; chronic findings as above #FEN -NS @75cc/hr -replete lytes prn, hx of hypokalemia -regular diet #PPX -heparin sq #Dispo med surg Visit type - Emergency Visit Emergency Visit: Yes ED Registration Date: 07/21/19 Care time: The patient presented to the Emergency Department on the above date and was hospitalized for further evaluation of their emergent condition. - New Patient This patient is new to me today: Yes Date on this admission: 07/22/19 - Critical Care Critical Care patient: No ATTENDING PHYSICIAN STATEMENT I saw and evaluated the patient. I reviewed the resident's note and discussed the case with the resident. I agree with the resident's findings and plan as documented. SUBJECTIVE: OBJECTIVE: ASSESSMENT AND PLAN:
--- NOTE | 2019-07-21 22:06 | PN ---
Teaching Attending Note Name of Resident: Constance Steele ATTENDING PHYSICIAN STATEMENT I saw and evaluated the patient. I reviewed the resident's note and discussed the case with the resident. I agree with the resident's findings and plan as documented. SUBJECTIVE: 44-year-old woman with a history of epilepsy since age 19, unknown psychiatric disorder, polysubstance abuseopiates for many years, migraines presenting for recurrent seizures. As per sister who provided history, patient began having tonic-clonic seizures which were witnessed on 07/20/2019 around 5 PM with about 7 episodes of tonic-clonic seizures lasting 1 to 3 minutes each. Patient was foaming at the mouth, lost consciousness, endorsed tongue biting. Of note patient was just discharged from inpatient for seizure disorder. Date of discharge was 07/19/2019, was discharged on Keppra 500 mg twice a day, Dilantin 100 mg twice a day. Patient claimed that she was taking her medications as directed. Neurology was consulted from the emergency room and advised to load patient with Keppra 1 g IV start 750 twice daily. OBJECTIVE: Last Vital Signs Temp Pulse Resp BP Pulse Ox 98.5 F 85 18 111/83 100 07/21/19 15:41 07/21/19 15:41 07/21/19 15:41 07/21/19 15:41 07/21/19 15:41 Physical exam showed a woman who appeared older than her stated age not in acute distress. No signs of trauma to head and no tongue bite lewis. Pupils are round and reactive bilaterally. No sinus tenderness, moist oral mucous membranes. No nuchal rigidity appreciated. Cardiovascular exam was remarkable for S1, S2 regular rate and rhythm, lungs were clear to auscultation bilaterally. Abdomen soft nontender, with no masses appreciated skin with no rashes, lower extremities bilaterally with no pedal edema Abnormal Lab Results 07/21/19 07/21/19 17:00 17:00 Hgb 15.6 H Hct 46.3 H MCV 100.6 H MCH 33.9 H Anion Gap 4 L Random Glucose 73 L Alkaline Phosphatase [address] from 07/18/2019 was reviewed, ventricles were slitlike, vega white matter junction appears unremarkable without suggestion of brain edema. Moderate atrophy/volume loss involving cerebellum of uncertain etiology be related to chronic seizure medications. ASSESSMENT AND PLAN: 44-year-old woman with uncontrolled seizures disorder status post multiples tonic-clonic seizures in last 24 hours. Unclear what etiology is of breakthrough seizures, may be recent medication change versus noncompliance with medications. At this time is seizure-free and is stable for admission to [facility]. Admit to [facility] N.p.o. BGM's Keppra 1 g IV Continue with Keppra 750 mg p.o. twice daily Follow-up with neurology for recommendations for AEDs especially for need for Dilantin 100 mg twice a day Well send Dilantin and Keppra level Urine toxicology screen especially given this patient's history of substance abuse EtOH level Bed rest Fall precautions Physical therapy evaluation Seizure precautions Aspiration precautions IV fluid hydration Recent head CT was appreciated #Hemoconcentrationmay be secondary to volume depletion IV fluid hydration Monitor CBC #DVT prophylaxisheparin subcutaneously
[2019-07-21] MEDS: THIAMINE HCL 100 MG TABLET (FP) PO SCH (22:12)
[2019-07-21] MEDS: FOLIC ACID 1 MG TABLET (FP) PO SCH (22:12)
[2019-07-21 22:33] LABS: URINE APPEARANCE CLEAR; URINE BILIRUBIN NEGATIVE (NEGATIVE); URINE COLOR YELLOW; URINE GLUCOSE (UA) NEGATIVE (NEGATIVE); URINE KETONE NEGATIVE (NEGATIVE); URINE LEUK ESTERASE NEGATIVE (NEGATIVE); URINE NITRITE NEGATIVE (NEGATIVE); URINE PROTEIN NEGATIVE (NEGATIVE)
[2019-07-21 22:45] LABS: COCAINE, UR NEGATIVE ng/ml (CUTOFF=300); METHADONE, UR NEGATIVE ng/ml (CUTOFF=300); OPIATES, URI NEGATIVE ng/ml (CUTOFF=300); PHENCYCLIDINE,URINE NEGATIVE ng/ml (CUTOFF=25); URINE AMPHETAMINES NEGATIVE ng/ml (CUTOFF=500); URINE BARBITURATES NEGATIVE ng/ml (CUTOFF=200); URINE BENZODIAZEPINES NEGATIVE ng/ml (CUTOFF=200)
[2019-07-22] MEDS ORDERED: SODIUM CHLORIDE 1,000 ML IV SCH (02:45)
[2019-07-22 04:20] VITALS: BMI 21.3
[2019-07-22] MEDS: HEPARIN NA (PORCINE) 5,000 UNITS/ML 1ML VIAL SQ SCH ×2 (05:14→13:58)
--- NOTE | 2019-07-22 07:32 | PN ---
Physical Exam: SUBJECTIVE: Patient seen and examined 44 y.o. F PMH epilepsy since age 19, prior hx of unknown psychiatric disorder, polysubstance abuse (opioids, many years ago not current), hypokalemia, migraines presenting for recurrent seizures. The patient is AOx3 however has lapses in short term memory. Sister at bedside providing history. Says the patient began seizing around 5pm yesterday and had 6 subsequent seizures, lasting 1-3 minutes each; patient was foaming at the mouth, lost consciousness. Did not hit head or lose continence but endorses tongue biting. She has been compliant with new medication since recent discharge on 07/19/2019. Sisters phone # [email or web address]) [phone] ER course was notable for: (1) keppra 1g IV (2) OBJECTIVE: Last Vital Signs Temp Pulse Resp BP Pulse Ox 98.1 F 73 18 107/68 100 07/22/19 01:40 07/22/19 01:40 07/22/19 02:05 07/22/19 01:40 07/22/19 02:05 GENERAL: The patient is awake, alert, and fully oriented, in no acute distress. Laboratory Results - last 24 hr CBC,CMP WBC 7.9 K/mm3 (4.0-10.0) 07/21/19 17:00 RBC 4.60 M/mm3 (3.60-5.2) 07/21/19 17:00 Hgb 15.6 GM/dL (10.7-15.3) H 07/21/19 17:00 Hct 46.3 % (32.4-45.2) H 07/21/19 17:00 MCV 100.6 fl (80-96) H 07/21/19 17:00 MCH 33.9 pg (25.7-33.7) H 07/21/19 17:00 MCHC 33.7 g/dl (32.0-36.0) 07/21/19 17:00 RDW 13.3 % (11.6-15.6) 07/21/19 17:00 Plt Count 266 K/MM3 (134-434) 07/21/19 17:00 MPV 8.8 fl (7.5-11.1) 07/21/19 17:00 Absolute Neuts (auto) 4.6 K/mm3 (1.5-8.0) 07/21/19 17:00 Neutrophils % 57.9 % (42.8-82.8) 07/21/19 17:00 Lymphocytes % 32.8 % (8-40) 07/21/19 17:00 Monocytes % 6.6 % (3.8-10.2) 07/21/19 17:00 Eosinophils % 1.6 % (0-4.5) 07/21/19 17:00 Basophils % 1.1 % (0-2.0) 07/21/19 17:00 Nucleated RBC % 0 % (0-0) 07/21/19 17:00 Sodium 140 mmol/L (136-145) 07/21/19 17:00 Potassium 3.5 mmol/L (3.5-5.1) 07/21/19 17:00 Chloride 106 mmol/L (98-107) 07/21/19 17:00 Carbon Dioxide 31 mmol/L (21-32) 07/21/19 17:00 Anion Gap 4 MMOL/L (8-16) L 07/21/19 17:00 BUN 12.2 mg/dL (7-18) 07/21/19 17:00 Creatinine 0.7 mg/dL (0.55-1.3) 07/21/19 17:00 Est GFR (CKD-EPI)AfAm 121.27 07/21/19 17:00 Est GFR (CKD-EPI)NonAf 104.64 07/21/19 17:00 Random Glucose 73 mg/dL (74-106) L 07/21/19 17:00 Calcium 9.3 mg/dL (8.5-10.1) 07/21/19 17:00 Total Bilirubin 0.2 mg/dL (0.2-1) 07/21/19 17:00 AST 15 U/L (15-37) 07/21/19 17:00 ALT 25 U/L (13-61) 07/21/19 17:00 Alkaline Phosphatase 122 U/L (45-117) H 07/21/19 17:00 Total Protein 7.7 g/dl (6.4-8.2) 07/21/19 17:00 Albumin 4.0 g/dl (3.4-5.0) 07/21/19 17:00 Active Medications Current Medications Folic Acid (Folic Acid -) 1 mg PO DAILY [facility] Last Admin: 07/21/19 22:12 Dose: 1 mg Heparin Sodium (Porcine) (Heparin -) 5,000 unit SQ TID [facility] Last Admin: 07/22/19 05:14 Dose: 5,000 unit Sodium Chloride (Normal Saline -) 1,000 mls @ 75 mls/hr IV ASDIR [facility] Last Admin: 07/22/19 03:30 Dose: 75 mls/hr Levetiracetam (Keppra -) 750 mg PO BID [facility] Phenytoin Sodium (Dilantin -) 100 mg PO BID [facility] Thiamine HCl (Vitamin B1 -) 100 mg PO DAILY [facility] Last Admin: 07/21/19 22:12 Dose: 100 mg Home Medications Medication Instructions Recorded Folic Acid - 1 mg PO DAILY #30 tablet 07/19/19 Phenytoin Na Extended [Dilantin -] 100 mg PO BID #60 capsule 07/19/19 Thiamine HCl [Vitamin B1 -] 100 mg PO DAILY #30 tablet 07/19/19 levETIRAcetam [Keppra -] 500 mg PO BID #60 tablet 07/19/19 ASSESSMENT/PLAN: Imaging: CT head: The ventricles are slitlike. However, the vega-white matter junction appears unremarkable without suggestion of brain edema. Correlate clinically. Moderate atrophy/ volume loss involving the cerebellum, of uncertain etiology. It may be related to chronic seizure medications and take. Correlate clinically. Otherwise, no CT evidence of acute intracranial pathology is identified. ASSESSMENT/PLAN: 44 y.o. F PMH epilepsy since age 19, prior hx of unknown psychiatric disorder, polysubstance abuse (opioids, many years ago not current), hypokalemia, migraines admitted for seizures. #Seizures -continue medications keppra increased to 750mg BID, dilantin 100mg BID -f.u further neuro recs- Dr. Green consulted -fall & seizure precautions -u-tox, alcohol level -f/u dilantin & keppra levela -CT head negative for acute pathology; chronic findings as above #FEN -NS @75cc/hr -replete lytes prn, hx of hypokalemia -regular diet #PPX -heparin sq #Dispo med surg ATTENDING PHYSICIAN STATEMENT I saw and evaluated the patient. I reviewed the resident's note and discussed the case with the resident. I agree with the resident's findings and plan as documented. SUBJECTIVE: OBJECTIVE: ASSESSMENT AND PLAN:
[2019-07-22] MEDS ORDERED: PHENYTOIN NA EXTENDED 100 MG CAPSULE (FP) PO SCH ×2 (08:00→10:00)
[2019-07-22] MEDS ORDERED: levETIRAcetam 500 MG TABLET (FP) PO SCH (08:00)
[2019-07-22 08:13] LABS: BASO % 0.9 % (0-2.0); EOS % 2.6 % (0-4.5); HEMATOCRIT 40.9 % (32.4-45.2); HEMOGLOBIN 13.7 GM/dL (10.7-15.3); LYMPH % 36.2 % (8-40); MCH 34.1 pg (25.7-33.7); MCHC 33.6 g/dl (32.0-36.0); MEAN CELL VOLUME 101.7 fl (80-96); MONO % 8.2 % (3.8-10.2); NEUT % 52.1 % (42.8-82.8); PLATELET COUNT 222 K/MM3 (134-434); RBC 4.02 M/mm3 (3.60-5.2); RDW 13.2 % (11.6-15.6); WHITE BLOOD COUNT 8.4 K/mm3 (4.0-10.0)
[2019-07-22 08:44] LABS: BILIRUBIN,TOTAL 0.3 mg/dL (0.2-1); BLOOD UREA NITROGEN 10.7 mg/dL (7-18); CALCIUM 8.4 mg/dL (8.5-10.1); CREATININE 0.5 mg/dL (0.55-1.3); MAGNESIUM 1.8 mg/dL (1.8-2.4); POTASSIUM 3.8 mmol/L (3.5-5.1); TOT PROT 6.1 g/dl (6.4-8.2)
[2019-07-22] MEDS ORDERED: MAGNESIUM OXIDE 400 MG TABLET (FP) PO ONE (09:00)
--- NOTE | 2019-07-22 09:00 | CONSULT ---
Consult - text type - Consultation Consultation Note: Neurology CHIEF COMPLAINT: seizures HISTORY OF PRESENT ILLNESS: 44 y.o. F PMH epilepsy since age 19, prior hx of unknown psychiatric disorder, polysubstance abuse (opioids, many years ago not current), hypokalemia, migraines presented for recurrent seizures. The patient is AOx3 however has lapses in short term memory. sister reportedly indicated that the patient began seizing around 5pm on day prior to admission and had 6 subsequent seizures, lasting 1-3 minutes each; patient was foaming at the mouth, lost consciousness. Did not hit head or lose continence but endorsed tongue biting. She has been compliant with new medication since recent discharge on 07/19/2019. CT of head completed and showed the ventricles are slitlike. However, the vega-white matter junction appears unremarkable without suggestion of brain edema. no acute changes noted and specifically no infarcts or bleed. Moderate atrophy/ volume loss involving the cerebellum, of uncertain etiology. It may be related to chronic seizure medications and take. Otherwise, no CT evidence of acute intracranial pathology is identified. this morning, she is awake and alert and did not have any abnormal movements. Advised resident to adjust her medication as she is on Dilantin 200 mg twice a day at home. I had recommended Keppra 750 mg twice a day was started on 500 mg twice a day by overnight resident, I modified the order overnight. Patient needs to maintain medication compliance and social work to help with her insurance status. Otherwise, neurologically stable at this time. Recent Travel: from [place] PAST MEDICAL HISTORY: seizure d/o, psychiatric hospitalization in 2007 for unknown pychiatric d/o PAST SURGICAL HISTORY: denies Family History: HTN Social History: Smoking: daily cigarette smoker Alcohol:denies Drugs: denies REVIEW OF SYSTEMS CONSTITUTIONAL: Absent: fever, chills, diaphoresis, generalized weakness, malaise, loss of appetite, weight change HEENT: Absent: rhinorrhea, nasal congestion, throat pain, throat swelling, difficulty swallowing, mouth swelling, ear pain, eye pain, visual changes CARDIOVASCULAR: Absent: chest pain, syncope, palpitations, irregular heart rate, lightheadedness , peripheral edema RESPIRATORY: Absent: cough, shortness of breath, dyspnea with exertion, orthopnea, wheezing, stridor, hemoptysis GASTROINTESTINAL: Absent: abdominal pain, abdominal distension, nausea, vomiting, diarrhea, constipation, melena, hematochezia GENITOURINARY: Absent: dysuria, frequency, urgency, hesitancy, hematuria, flank pain, genital pain MUSCULOSKELETAL: Absent: myalgia, arthralgia, joint swelling, back pain, neck pain SKIN: Absent: rash, itching, pallor HEMATOLOGIC/IMMUNOLOGIC: Absent: easy bleeding, easy bruising, lymphadenopathy, frequent infections ENDOCRINE: Absent: unexplained weight gain, unexplained weight loss, heat intolerance, cold intolerance NEUROLOGIC: confusion, seizure Absent: headache, focal weakness or paresthesias, dizziness, unsteady gait, mental status changes, bladder or bowel incontinence PSYCHIATRIC: Absent: anxiety, depression, suicidal or homicidal ideation, hallucinations. Allergies No Known Allergies Allergy (Verified 07/18/19 18:09) HOME MEDICATIONS: Home Medications Medication Instructions Recorded Folic Acid - 1 mg PO DAILY #30 tablet 07/19/19 Phenytoin Na Extended [Dilantin -] 100 mg PO BID #60 capsule 07/19/19 Thiamine HCl [Vitamin B1 -] 100 mg PO DAILY #30 tablet 07/19/19 levETIRAcetam [Keppra -] 500 mg PO BID #60 tablet 07/19/19 Active Medications Folic Acid (Folic Acid -) 1 mg PO DAILY [facility] Last Admin: 07/21/19 22:12 Dose: 1 mg Heparin Sodium (Porcine) (Heparin -) 5,000 unit SQ TID [facility] Last Admin: 07/22/19 05:14 Dose: 5,000 unit Sodium Chloride (Normal Saline -) 1,000 mls @ 75 mls/hr IV ASDIR [facility] Last Admin: 07/22/19 03:30 Dose: 75 mls/hr Levetiracetam (Keppra -) 750 mg PO BID [facility] Phenytoin Sodium (Dilantin -) 200 mg PO BID [facility] Potassium Chloride (K-Dur -) 40 meq PO DAILY [facility] Thiamine HCl (Vitamin B1 -) 100 mg PO DAILY [facility] Last Admin: 07/21/19 22:12 Dose: 100 mg PHYSICAL EXAMINATION Vital Signs Period Temp Pulse Resp BP Sys/Rosales Pulse Ox Last 24 Hr 98.1 F-98.5 F 72-85 14-20 99-115/62-83 100-100 GENERAL: Awake, alert, and fully oriented, in no acute distress. HEENT: No visual changes. NCAT. No sores/ wounds noted in oral cavity or on tongue. MMM. Conjunctiva clear. LUNGS: Breath sounds equal, clear to auscultation bilaterally. No wheezes, and no crackles. No accessory muscle use. HEART: Regular rate and rhythm, normal S1 and S2 without murmur, rub or gallop. ABDOMEN: Soft, nontender, not distended, normoactive bowel sounds EXTREMITIES: 2+ pulses, warm, well-perfused. No peripheral edema. NEUROLOGICAL: Cranial nerves II-XII intact. Normal speech. PSYCHIATRIC: Good mood and affect. SKIN: No rashes or lesions noted CBCD WBC 8.4 K/mm3 (4.0-10.0) 07/22/19 07:35 RBC 4.02 M/mm3 (3.60-5.2) 07/22/19 07:35 Hgb 13.7 GM/dL (10.7-15.3) 07/22/19 07:35 Hct 40.9 % (32.4-45.2) 07/22/19 07:35 MCV 101.7 fl (80-96) H 07/22/19 07:35 MCHC 33.6 g/dl (32.0-36.0) 07/22/19 07:35 RDW 13.2 % (11.6-15.6) 07/22/19 07:35 Plt Count 222 K/MM3 (134-434) 07/22/19 07:35 MPV 9.0 fl (7.5-11.1) 07/22/19 07:35 CMP Sodium 142 mmol/L (136-145) 07/22/19 07:35 Potassium 3.8 mmol/L (3.5-5.1) 07/22/19 07:35 Chloride 112 mmol/L (98-107) H 07/22/19 07:35 Carbon Dioxide 25 mmol/L (21-32) 07/22/19 07:35 Anion Gap 4 MMOL/L (8-16) L 07/22/19 07:35 BUN 10.7 mg/dL (7-18) 07/22/19 07:35 Creatinine 0.5 mg/dL (0.55-1.3) L 07/22/19 07:35 Random Glucose 84 mg/dL (74-106) 07/22/19 07:35 Calcium 8.4 mg/dL (8.5-10.1) L 07/22/19 07:35 Total Bilirubin 0.3 mg/dL (0.2-1) 07/22/19 07:35 AST 12 U/L (15-37) L 07/22/19 07:35 ALT 21 U/L (13-61) 07/22/19 07:35 Alkaline Phosphatase 97 U/L (45-117) 07/22/19 07:35 Total Protein 6.1 g/dl (6.4-8.2) L 07/22/19 07:35 Albumin 3.0 g/dl (3.4-5.0) L 07/22/19 07:35 CARDIAC ENZYMES Creatine Kinase 34 U/L (26-192) 07/22/19 07:35 ASSESSMENT/PLAN: 44 y.o. F PMH epilepsy since age 19, prior hx of unknown psychiatric disorder, polysubstance abuse (opioids, many years ago not current), hypokalemia, migraines presented for recurrent seizures. The patient is AOx3 however has lapses in short term memory. Sister indicated began seizing around 5pm on day prior to admission and had 6 subsequent seizures, lasting 1-3 minutes each; patient was foaming at the mouth, lost consciousness. Did not hit head or lose continence but endorsed tongue biting. She has been compliant with new medication since recent discharge on 07/19/2019. CT of head completed and showed the ventricles are slitlike. However, the vega-white matter junction appears unremarkable without suggestion of brain edema. Correlate clinically. Moderate atrophy/ volume loss involving the cerebellum, of uncertain etiology. It may be related to chronic seizure medications and take. Correlate clinically. Otherwise , no CT evidence of acute intracranial pathology is identified. this morning, she is awake and alert and did not have any abnormal movements. Advised resident to adjust her medication as she is on Dilantin 200 mg twice a day at home. I had recommended Keppra 750 mg twice a day was started on 500 mg twice a day by overnight resident, I modified the order overnight. Patient needs to maintain medication compliance and social work to help with her insurance status. Otherwise, neurologically stable at this time.
[2019-07-22] MEDS: levETIRAcetam 250 MG TABLET PO SCH ×2 (09:14→10:13)
[2019-07-22] MEDS ORDERED: POTASSIUM CHLORIDE TABS 20 MEQ TABLET.ER (FP) PO SCH (10:00)
[2019-07-22] MEDS: THIAMINE HCL 100 MG TABLET (FP) PO SCH (10:11)
[2019-07-22] MEDS: FOLIC ACID 1 MG TABLET (FP) PO SCH (10:11)
--- NOTE | 2019-07-22 11:51 | EKG ---
Test Reason : Blood Pressure : / mmHG Vent. Rate : 075 BPM Atrial Rate : 075 BPM P-R Int : 172 ms QRS Dur : 092 ms QT Int : 388 ms P-R-T Axes : 069 077 073 degrees QTc Int : 433 ms NORMAL SINUS RHYTHM POSSIBLE LEFT ATRIAL ENLARGEMENT NON-SPECIFIC INTRA-VENTRICULAR CONDUCTION DELAY WHEN COMPARED WITH ECG OF 18-JUL-2019 20:51, NO SIGNIFICANT CHANGE WAS FOUND Confirmed by BENJAMÍN LEWIS MD ([id number]) on 07/22/2019 11:50:54 AM Referred By: Confirmed By:BENJAMÍN LEWIS MD
[2019-07-22 12:23] VITALS: PULSE 76
--- NOTE | 2019-07-22 13:40 | PN ---
Teaching Attending Note Name of Resident: Nithin Sauceda ATTENDING PHYSICIAN STATEMENT I saw and evaluated the patient. I reviewed the resident's note and discussed the case with the resident. I agree with the resident's findings and plan as documented. Seen and examined; please see resident note for further historical information. I personally verified all murillo historical information and exam findings. Personally interpreted all imaging and diagnostics and reviewed appropriate consults. I reviewed all labs and vital signs as per resident note and EMR as documented. I agree with the above assessment and plan unless supplemented by myself in the following. No new complaints or witnessed seizure activity; unclear why was not placed on recommended dose of meds overnight. 10 item review of systems completed and is negative aside from as discussed in the subjective data in my own/the resident documentation. VS, labs, imaging reviewed NAD, AAO, resting comfortably in bed. RRR s1/2 no mgr Normal muscle tone, moves all 5 extremities with normal apparent strength Neck is supple, trachea midline, no lópez LN Lungs CTAB with sym expansion NT ND +BS no lópez organomegaly CN2-12 wnl; no FND NC AT EOMI PERRLA Normal mood, appropriate behavior, euthymic affect No skin breakdown or rashes noted Assessment and plan: Patient is known to me from prior admission where she was cleared by neurology and discharged after having history of seizure but no current seizure. She presented today after stating that her sister saw her have multiple seizures when she is asleep. She states that she knows she had seizures when she was asleep due to her emotional response, and that she feels different emotionally after she has a seizure episode. She does not endorse a postictal state. She states that she constantly has drooling/foaming at the mouth with seizures. This is consistent with all of her prior descriptions of the episodes at the hospital in [place], prior to her previous episode last time, and this time. No seizure activity was observed whatsoever and the patient anticipates that she had greater than 5 seizures in the emergency room and since the time she got to the floor. This does not reflect what was objectively observed in reality. She was seen by Dr. Green who indicates that she has no acute neurologic issues and that she may be discharged on Dilantin 200 mg twice daily and Keppra 750 mg twice daily. She was cleared for discharge home and she can follow-up with neurology. May consider neuropsychiatric evaluation due to her memory issues which she indicates is been present for some time. No acute focal neurologic abnormalities, social work will speak to her regarding medication access. Primary care in 3 to 5 days neurology in 1 week. Furthermore, I will indicate that she had informed me that her prior provider stated that she needed to see a psychiatrist for her seizures and that she regularly sees a psychiatrist for her seizures. She is unsure if her psychiatrist wanted her on any medications for the seizures; the history communicated was consistent with potential pseudoseizures but want to avoid anchoring bias. She will keep her scheduled follow-up
--- NOTE | 2019-07-22 13:48 | DS ---
Physical Exam: SUBJECTIVE: Patient seen and examined. Asymptomatic and afebrile. Pt reports multiple seizures overnight but nurses or staff did not report or see any seizures. Denies f/c/n/v/d/sob/cp. OBJECTIVE: Vital Signs Period Temp Pulse Resp BP Sys/Rosales Pulse Ox Last 24 Hr 98.1 F-98.5 F 72-85 14-20 95-115/62-83 98-100 PHYSICAL EXAM GENERAL: Awake, alert, and fully oriented, in no acute distress. Appears mildly anxious. Poor oral hygiene HEENT: PERRLA, EOMI. No visual changes. No sores/ wounds noted in oral cavity or on tongue. MMM. Conjunctiva clear. LUNGS: Breath sounds equal, clear to auscultation bilaterally. No wheezes, and no crackles. HEART: Regular rate and rhythm, normal S1 and S2 without murmur, rub or gallop. ABDOMEN: Soft, nontender, not distended, normoactive bowel sounds EXTREMITIES: 2+ pulses, warm, well-perfused. No peripheral edema. NEUROLOGICAL: Cranial nerves II-XII intact. Normal speech. PSYCHIATRIC: Good mood and affect. SKIN: No rashes or lesions noted LABS Laboratory Results - last 24 hr 07/21/19 07/21/19 07/21/19 17:00 17:00 22:14 WBC 7.9 RBC 4.60 Hgb 15.6 H Hct 46.3 H MCV 100.6 H MCH 33.9 H MCHC 33.7 RDW 13.3 Plt Count 266 MPV 8.8 Absolute Neuts (auto) 4.6 Neutrophils % 57.9 Lymphocytes % 32.8 Monocytes % 6.6 Eosinophils % 1.6 Basophils % 1.1 Nucleated RBC % 0 Sodium 140 Potassium 3.5 Chloride 106 Carbon Dioxide 31 Anion Gap 4 L BUN 12.2 Creatinine 0.7 Est GFR (CKD-EPI)AfAm 121.27 Est GFR (CKD-EPI)NonAf 104.64 Random Glucose 73 L Calcium 9.3 Magnesium Total Bilirubin 0.2 AST 15 ALT 25 Alkaline Phosphatase 122 H Creatine Kinase Total Protein 7.7 Albumin 4.0 Urine Color Urine Appearance Urine pH Ur Specific Law[place] Urine Protein Urine Glucose (UA) Urine Ketones Urine Blood Urine Nitrite Urine Bilirubin Urine Urobilinogen Ur Leukocyte Esterase Opiates Screen Negative Methadone Screen Negative Barbiturate Screen Negative Phencyclidine Screen Negative Ur Amphetamines Screen Negative MDMA (Ecstasy) Screen Negative Benzodiazepines Screen Negative Cocaine Screen Negative U Marijuana (THC) Screen Negative Alcohol, Quantitative < 3 07/21/19 07/22/19 07/22/19 22:14 07:35 07:35 WBC 8.4 RBC 4.02 Hgb 13.7 Hct 40.9 MCV 101.7 H MCH 34.1 H MCHC 33.6 RDW 13.2 Plt Count 222 MPV 9.0 Absolute Neuts (auto) 4.4 Neutrophils % 52.1 Lymphocytes % 36.2 Monocytes % 8.2 Eosinophils % 2.6 Basophils % 0.9 Nucleated RBC % 0 Sodium 142 Potassium 3.8 Chloride 112 H Carbon Dioxide 25 Anion Gap 4 L BUN 10.7 Creatinine 0.5 L Est GFR (CKD-EPI)AfAm 135.47 Est GFR (CKD-EPI)NonAf 116.89 Random Glucose 84 Calcium 8.4 L Magnesium 1.8 Total Bilirubin 0.3 AST 12 L ALT 21 Alkaline Phosphatase 97 Creatine Kinase 34 Total Protein 6.1 L Albumin 3.0 L Urine Color Yellow Urine Appearance Clear Urine pH 7.0 D Ur Specific Law[place] 1.021 Urine Protein Negative Urine Glucose (UA) Negative Urine Ketones Negative Urine Blood Negative Urine Nitrite Negative Urine Bilirubin Negative Urine Urobilinogen 1.0 Ur Leukocyte Esterase Negative Opiates Screen Methadone Screen Barbiturate Screen Phencyclidine Screen Ur Amphetamines Screen MDMA (Ecstasy) Screen Benzodiazepines Screen Cocaine Screen U Marijuana (THC) Screen Alcohol, Quantitative Home Medications Medication Instructions Recorded Folic Acid - 1 mg PO DAILY #30 tablet 07/19/19 Thiamine HCl [Vitamin B1 -] 100 mg PO DAILY #30 tablet 07/19/19 Phenytoin Na Extended [Dilantin -] 200 mg PO BID #60 capsule 07/22/19 levETIRAcetam [Keppra -] 750 mg PO BID #60 tablet 07/22/19 HOSPITAL COURSE: Date of Admission:07/21/19 44 y/o F PMH epilepsy since age 19, prior hx of unknown psychiatric disorder who pt see her psychiatrist for in [place], polysubstance abuse (opioids, many years ago, denies use now), hypokalemia, migraines admitted for multiple seizures. I discussed with sister, who reports pt had multiple episodes of seizures, starting at 5 am, at least 4-5 episodes lasting 30 seconds overnight while pt was sleeping. As per the sister, pt was foaming from her mouth, jaws locked and tremors were present. Pt reports that she did not remember her seizures but did have episodes overnight in the hospital which was not noticed or reported by staff/nurses. CT head showed The ventricles are slitlike. However , the vega-white matter junction appears unremarkable without suggestion of brain edema. Correlate clinically. Moderate atrophy/ volume loss involving the cerebellum, of uncertain etiology. It may be related to chronic seizure medications and take. Correlate clinically. Otherwise, no CT evidence of acute intracranial pathology is identified. Pt's symptoms will need to be worked up outpt and was referred to Dr. Green, possible component of pseudoseizures should be considered. Discussed with Dr. Green, neurologist, who recommended discharging pt on Keppra 750 BID and Dilantin 200 BID. Pt remained stable and asymtpomatic and was discharged on Keppra 750mg BID, Dilantin 200 mg BID, folic acid and thiamine, with recommendation to follow up with Dr. Green in 2 weeks as she has a scheduled appt with him. EKG: NSR, possible LA enlargement CT head 07/18: The ventricles are slitlike. However, the vega-white matter junction appears unremarkable without suggestion of brain edema. Correlate clinically. Moderate atrophy/ volume loss involving the cerebellum, of uncertain etiology. It may be related to chronic seizure medications and take. Correlate clinically. Otherwise, no CT evidence of acute intracranial pathology is identified. Date of Discharge: 07/22/19 Minutes to complete discharge: 40 Discharge Summary Problems reviewed: Yes Reason For Visit: WITNESSED SEIZURE LIKE ACTIVITY Condition: Good - Instructions Diet, Activity, Other Instructions: You were admitted in the hospital for seizures While you were in the hospital, we evaluated you with lab work, blood work, imaging including a CAT scan of your head. We monitored you overnight and you did not have any further seizures. We have made some changes to your medications, please take the following medications as instructed Please START taking Keppra 750 mg twice a day Please START taking Dilantin 200 mg twice a day Please take all your medications as prescribed Please follow up with Dr. Green, your neurologist, within 2 weeks as scheduled for your visit. Please follow up with your Primary care physician Dr. Padilla, or the one we have provided you with, within 1 week Return to the emergency room, if you experience any worsening of your symptoms, headaches, chest pains, further seizures, or any worsening of your condition. Referrals: Bert Green MD [Staff Physician] - 2 Weeks (You have a scheduled visit with Dr. Green, please follow up with him. ) Cornell Ayala MD [Staff Physician] - 1 Week Disposition: HOME - Home Medications Comprehensive Discharge Medication List: Ambulatory Orders Folic Acid - 1 mg PO DAILY #30 tablet 07/19/19 Thiamine HCl [Vitamin B1 -] 100 mg PO DAILY #30 tablet 07/19/19 Phenytoin Na Extended [Dilantin -] 200 mg PO BID #60 capsule 07/22/19 levETIRAcetam [Keppra -] 750 mg PO BID #60 tablet 07/22/19 This patient is new to me today: Yes Date on this admission: 07/22/19 Emergency Visit: Yes ED Registration Date: 07/21/19 Care time: The patient presented to the Emergency Department on the above date and was hospitalized for further evaluation of their emergent condition. Critical Care patient: No - Discharge Referral Referred to [facility] No ATTENDING PHYSICIAN STATEMENT I saw and evaluated the patient. I reviewed the resident's note and discussed the case with the resident. I agree with the resident's findings and plan as documented. SUBJECTIVE: OBJECTIVE: ASSESSMENT AND PLAN:
[2019-07-22 14:25] VITALS: BP 93/61; TEMP 97.8
--- NOTE | 2019-07-22 16:49 | PDOC ---
Documentation entered by Rochelle Youssef SCRIBE, acting as scribe for Fareed Daniels DO. Fareed Daniels DO: This documentation has been prepared by the gordone, Rochelle Youssef SCRIBE, under my direction and personally reviewed by me in its entirety. I confirm that the documentation accurately reflects all work, treatment, procedures, and medical decision making performed by me. Attending Attestation - Resident Resident Name: GarrettKen - ED Attending Attestation I have performed the following: I have examined & evaluated the patient, The case was reviewed & discussed with the resident, I agree w/resident's findings & plan, Exceptions are as noted - HPI HPI: 07/21/19 18:02 Patient is a 44 year old female with a significant past medical history of epilepsy and polysubstance abuse who presents to the ED today with multiple episodes of seizures. Patient is visiting from [place], and has no physicians here. Patient is compliant with her medication, keppra. As per patient, family reports she begins to snore at night and becomes apnick and goes into tonic clonic seizures. Patient was admitted to a hospital july 18 for seizures and was discharged. Patient reports that she feels well now but she is scared to sleep. - Physicial Exam PE: 07/21/19 18:02 GENERAL: Awake, alert, and fully oriented, in no acute distress HEAD: No signs of trauma EYES: PERRLA, EOMI, sclera anicteric, conjunctiva clear ENT: No lacerations to the oral mucosa. Auricles normal inspection, hearing grossly normal, nares patent, oropharynx clear without exudates. Moist mucosa NECK: Normal ROM, supple, no lymphadenopathy, JVD, or masses LUNGS: Breath sounds equal, clear to auscultation bilaterally. No wheezes, and no crackles HEART: Regular rate and rhythm, normal S1 and S2, no murmurs, rubs or gallops ABDOMEN: Soft, nontender, normoactive bowel sounds. No guarding, no rebound. No masses EXTREMITIES: Normal range of motion, no edema. No clubbing or cyanosis. No cords, erythema, or tenderness NEUROLOGICAL: ANOx4. Cranial nerves II through XII grossly intact. Normal speech, normal gait SKIN: Warm, Dry, normal turgor, no rashes or lesions noted. - Medical Decision Making 07/21/19 18:02 Patient is a 44 year old female with epilepsy. Will evaluate for breakthrough seizures. Likely w/ sleep apnea causing nighttime hypoxia and triggering seizures. Will plan for neuro eval and admission. Aox4 Well appearing No gross deficits on exam CN II-XII intact, no drift, finger to nose intact 07/29/19 02:10
== END 2019-07-22 14:52 | disposition home or self-care (01) | DRG 53 ==
LOC: JER 15:31 → JERBED 18:05 → J6S 07-22 01:40
PROVIDERS: ADMIT Internal Medicine; ATTEND Internal Medicine
DX: G40.409 Other generalized epilepsy and epileptic syndromes, not intractable, without status epilepticus (principal); F17.210 Nicotine dependence, cigarettes, uncomplicated; F11.11 Opioid abuse, in remission; G43.909 Migraine, unspecified, not intractable, without status migrainosus
CPT/HCPCS: 36415; 80053; 80177; 80186; 80307; 81003; 82550; 83735; 85025; 87086; 93005; 93010; 97116-GP; 99285-25; J1644; J7030